=== PATIENT | female | born 1970 | race Caucasian/White ===

== ENCOUNTER 2021-02-02 07:46 | Day surgery (SDC) | payer OTHER ==
[~2021-02-02 07:46] MED LIST: CLONAZEPAM0.5 MG PO; CLONAZEPAM1 MG PO; CODE1TAB37 PO; CRYSELLE1 TAB PO; DOCUSATE SODIU100 MG PO; KETO10TA2 PO; MACROBID 100 M100 MG PO; Mylicon 125MG PO; PROGESTERONE200 MG PO; TAMS0.4C PO; TOPROL XL50 M1 PO; VITAMIN D PO
[2021-02-02] MEDS ORDERED: KETO10TA2 PO (08:25)
[2021-02-02] MEDS ORDERED: PERCOCET 5-3251 EACH PO (08:25)
[2021-02-02] MEDS ORDERED: NEURONTIN300 MG PO (08:25)
[2021-02-02] MEDS ORDERED: DERMOPLAST PAIN78 GM TOP (08:26)
== END 2021-02-02 18:10 | disposition home or self-care (01) ==
LOC: CIR.AMB 07:46
PROVIDERS: ATTEND Surgery
DX: K64.8 Other hemorrhoids (principal); K64.4 Residual hemorrhoidal skin tags; K64.2 Third degree hemorrhoids; Z20.822 Contact with and (suspected) exposure to COVID-19

== ENCOUNTER 2024-03-31 06:36 | Day surgery (SDC) | payer OTHER ==
[2024-03-26 08:55] LABS: HEMATOCRIT 41.2 % (36.0-45.00); HEMOGLOBIN 14.2 g/dL (12.0-15.00); MEAN CELL VOLUME 90.8 fL (80.00-100.00); MEAN CORPUSCULAR HEMOGLOBIN 31.2 pg (27.00-32.0); MEAN CORPUSCULAR HGB CONC 34.4 g/dl (32.0-36.0); PLATELET COUNT 230 K/uL (150-450); RED BLOOD COUNT 4.54 M/uL (4.00-6.00); RED CELL DISTRIBUTION WIDTH 13.2 % (11.5-14.5)
[2024-03-26 09:07] LABS: URINE APPEARANCE Clear; URINE BILIRRUBIN Negative (NEGATIVE); URINE BLOOD Negative; URINE COLOR Yellow; URINE GLUCOSE Negative (NEGATIVE); URINE KETONE Negative (NEGATIVE); URINE LEUKOCYTE Negative; URINE NITRATE Negative; URINE PROTEIN Negative (NEGATIVE); URINE UROBILINOGEN 0.2 E.U./dl
[2024-03-26 09:09] LABS: URINE BACTERIA 57.9 uL (0.0-1933); URINE EPITHELIAL CELLS 2.9 uL (0.0-38.8); URINE RBC 26.4 uL (0.0-20.8); URINE WBC 2.3 uL (0.0-23.2)
[2024-03-26 09:37] LABS: INR 0.97; PARTIAL THROMBOPLASTIN TIME 30.9 SECONDS (22.0-34.0); PROTHROMBIN TIME 10.2 SECONDS (9.0-11.5)
[2024-03-26 09:39] LABS: ALBUMIN 3.6 gm/dL (3.4-5.0); BILIRUBIN TOTAL 0.46 mg/dL (0.3-1.2); CALCIUM 8.9 mg/dL (8.5-10.1); CREATININE SERUM 0.88 mg/dL (0.55-1.02); GFR 66.71; GLOBULINA 3.3 G/DL (2.4-3.5); POTASSIUM 4.78 mEq/L (3.5-5.1); TOTAL PROTEIN 6.9 gm/dL (6.4-8.2)
[~2024-03-31 06:36] MED LIST changes: +DERMOPLAST PAIN78 GM TOP; +NEURONTIN300 MG PO; +PERCOCET 5-3251 EACH PO; +YUVAFEM10 MCG
[2024-03-31] MEDS ORDERED: SUGAMMADEX SODIUM 200 MG/2 ML VIAL IV ONE (13:18)
[2024-03-31] MEDS ORDERED: KETOROLAC TROMETHAMINE 60 MG VIAL IM ONE (13:30)
[2024-03-31] MEDS ORDERED: ONDANSETRON HCL 2 MG/ML VIAL IV ONE (13:30)
== END 2024-03-31 15:20 | disposition home or self-care (01) ==
LOC: CIR.AMB 06:36
PROVIDERS: ATTEND Obstetrics & Gynecology
DX: N80.03 Adenomyosis of the uterus (principal); N95.0 Postmenopausal bleeding; R87.612 Low grade squamous intraepithelial lesion on cytologic smear of cervix (LGSIL); H52.10 Myopia, unspecified eye